=== PATIENT | female | born 1925 | race Caucasian/White ===

== ENCOUNTER → 2017-09-24 | Outpatient (CLI) | payer BC ==
--- NOTE | 2017-09-24 10:59 | DIAGNOSTIC IMAGING REPORT ---
RIGHT KNEE 2 VIEWS CLINICAL HISTORY: RIGHT KNEE PAIN COMPARISON: None. DISCUSSION: There are advanced osteophytic changes. There is chondrocalcinosis. There is marked narrowing medial joint compartment with subchondral sclerosis. There are prominent dorsal patellar spurs. No acute fractures are visualized IMPRESSION: Advanced osteoarthritic changes with chondrocalcinosis. No acute fractures. Electronically signed by: Mauro Peter M.D. 09/24/2017 10:57 AM Dictated Date/Time: 09/24/2017 10:57 AM
== END | disposition home or self-care (01) ==
LOC: C.RAD1850 10:40
PROVIDERS: ATTEND Family Medicine
DX: M25.561 Pain in right knee (principal); M11.261 Other chondrocalcinosis, right knee